=== PATIENT | male | born 1960 | race Two or more races ===

== ENCOUNTER → 2018-02-20 | Outpatient (CLI) | payer OTHER ==
[2018-02-20 17:41] LABS: ABSOLUTE EOSINOPHILS # (AUTO) 0.5 10^3/uL (0.0-0.6); ABSOLUTE LYMPHOCYTES (AUTO) 1.6 10^3/uL (0.5-4.7); ABSOLUTE MONOCYTES (AUTO) 0.5 10^3/uL (0.1-1.4); ABSOLUTE NEUT (AUTO) 4.3 10^3/uL (1.7-8.2); BASOPHILS % (AUTO) 0.4 % (0-2); EOSINOPHILS % (AUTO) 6.6 % (0-6); HEMATOCRIT 41.2 % (37.9-51.0); HEMOGLOBIN 14.2 g/dL (13.5-17.0); LYMPHOCYTES % (AUTO) 23.3 % (13-45); MEAN CORPUSCULAR HEMOGLOBIN 29.3 pg (27.0-33.4); MEAN CORPUSCULAR HGB CONC 34.5 g/dL (32.0-36.0); MEAN CORPUSCULAR VOLUME 85 fl (80-97); MONOCYTES % (AUTO) 7.4 % (3-13); PLATELET COUNT 317 10^3/uL (150-450); RED BLOOD COUNT 4.85 10^6/uL (4.35-5.55); RED CELL DISTRIBUTION WIDTH 17.8 % (11.5-14.0); SEGMENTED NEUTROPHILS % (AUTO) 62.3 % (42-78); TOTAL CELLS COUNTED % (AUTO) 100 %
[2018-02-20 17:48] LABS: INTERNATIONAL RATION (INR) 0.86; PROTHROMBIN TIME 12.2 SEC (11.4-15.4)
[2018-02-20 17:49] LABS: APPEARANCE,URINE CLEAR; BILIRUBIN,URINE NEGATIVE (NEGATIVE); COLOR,URINE YELLOW; GLUCOSE, URINE NEGATIVE (NEGATIVE); KETONES,URINE NEGATIVE (NEGATIVE); LEUKOCYTE ESTERASE,URINE NEGATIVE (NEGATIVE); NITRITE,URINE NEGATIVE (NEGATIVE); PROTEIN,URINE NEGATIVE (NEGATIVE); URINE SPECIFIC GRAVITY 1.012; UROBILINOGEN,URINE NEGATIVE mg/dL (<2.0)
== END ==
LOC: OD 16:13
PROVIDERS: ATTEND Pain Medicine Interventional Pain Medicine
DX: M96.1 Postlaminectomy syndrome, not elsewhere classified (principal); D68.9 Coagulation defect, unspecified
CPT/HCPCS: 36415; 81001; 85025; 85610; 85730

== ENCOUNTER 2018-03-11 05:56 | Day surgery (SDC) | payer OTHER ==
[2018-03-07 10:07] LABS: ANION GAP 12 (5-19); BLOOD UREA NITROGEN 11 mg/dL (7-20); CALCIUM 10.1 mg/dL (8.4-10.2); CARBON DIOXIDE 32 mmol/L (22-30); CHLORIDE 99 mmol/L (98-107); GLUCOSE 98 mg/dL (75-110); SODIUM 142.9 mmol/L (137-145)
--- NOTE | 2018-03-07 10:19 | RADIOLOGY REPORT (SQ) ---
EXAM DESCRIPTION: CHEST PA/LATERAL COMPLETED DATE/TIME: 03/07/2018 10:03 am REASON FOR STUDY: PRE-OP COMPARISON: None. EXAM PARAMETERS: NUMBER OF VIEWS: two views TECHNIQUE: Digital Frontal and Lateral radiographic views of the chest acquired. RADIATION DOSE: NA LIMITATIONS: none FINDINGS: LUNGS AND PLEURA: No opacities, masses or pneumothorax. No pleural effusion. MEDIASTINUM AND HILAR STRUCTURES: No masses or contour abnormalities. HEART AND VASCULAR STRUCTURES: Heart normal size. No evidence for failure. BONES: No acute findings. HARDWARE: None in the chest. OTHER: No other significant finding. IMPRESSION: NO SIGNIFICANT RADIOGRAPHIC FINDING IN THE CHEST. TECHNICAL DOCUMENTATION: JOB ID: [id number] [employer]- All Rights Reserved Reading location - IP/workstation name: [email or web address]
--- NOTE | 2018-03-07 10:42 | EKG REPORT ---
SEVERITY:- ABNORMAL ECG - SINUS RHYTHM FIRST DEGREE AV BLOCK BORDERLINE T ABNORMALITIES, INFERIOR LEADS : Confirmed by: Aquiles Del Valle 07-Mar-2018 10:41:01
[~2018-03-11 05:56] MED LIST: CLINDAMYCIN 600 MG/D5W RTU 600 MG/50 ML RTUPB IV ONE; CLINDAMYCIN 600 MG/D5W RTU 600 MG/50 ML RTUPB IV PRN; LACTATED RINGERS 1000 ML IV PRN; LIDOCAINE 0.5% INJ-PF (5 MG/ML) 50 ML SDV SUBCUT PRN
[2018-03-11] MEDS ORDERED: BUPIVACAINE HCL 0.25% /EPINEPHRINE INJ/PF 30 ML SDV ONE (06:33)
[2018-03-11] MEDS ORDERED: SODIUM BICARBONATE 8.4% INJ 50 MEQ/50 ML DISP.SYRIN ONE (06:33)
[2018-03-11] MEDS ORDERED: LIDOCAINE 1% INJ-PF (10 MG/ML) 30 ML SDV ONE ×2 (06:33→08:47)
[2018-03-11] MEDS ORDERED: PROPOFOL INJ 200 MG/20 ML VIAL IV ONE (07:23)
[2018-03-11] MEDS ORDERED: FENTANYL CITRATE INJ/PF 100 MCG/2 ML AMPUL ONE (07:23)
[2018-03-11] MEDS ORDERED: MIDAZOLAM 2 MG/2 ML INJ ONE (07:23)
[2018-03-11] MEDS ORDERED: ONDANSETRON HCL INJ/PF 4 MG/2 ML SDV IV PRN (08:24)
[2018-03-11] MEDS ORDERED: DIPHENHYDRAMINE HCL 50 MG/ML VIAL IV PRN (08:24)
[2018-03-11] MEDS ORDERED: FENTANYL CITRATE INJ/PF 100 MCG/2 ML AMPUL IV PRN ×3 (08:24)
[2018-03-11] MEDS ORDERED: CLINDAMYCIN PHOSPHATE INJ 300 MG/2 ML SDV ONE (09:58)
[2018-03-11] MEDS ORDERED: OXYCODONE-ACETAMINOPHEN 5-325 MG TABLET PO PRN (10:11)
--- NOTE | 2018-03-11 11:11 | OPERATIVE REPORT E ---
Operative Report NAME: EDEN EWING : 1960 AGE: 57Y DATE OF SURGERY: 03/11/2018 ROOM: PREOPERATIVE DIAGNOSIS: Lumbar radiculopathy with post laminectomy syndrome, chronic pain syndrome. OPERATION: Surgical implantation of spinal cord stimulating system including 2 16-electrode contact leads and post generator with fluoroscopy for needle placement and complex spinal cord stimulator programing. FERMENTATION ENGINEER: USHA TERRAZAS M.D. ATTENDING PHYSICIAN: Luzma Story MD ANESTHESIA: MAC TISSUE REMOVED OR ALTERED: None. PROCEDURE: After obtaining informed consent advising the patient of the risks and benefits including serious neurological injury, bleeding, pain, failure to treat pain, allergic reaction, paralysis, and he was taken to the operating room number 1 and placed comfortably in the prone position. Comfort was assessed visually. MAC anesthesia was administered. He was prepped with Chlorhexidine with the appropriate drying time until draping. After draping, fluoroscopy was utilized to evaluate the spine and suitable entrance site to the T12/L1 interspace was identified. The skin in the midline was anesthetized with 1% lidocaine and bicarb. The post generator pocket is predetermined over the left flank, it was also anesthetized with 1% lidocaine. Sharp and blunt dissection were performed in each location to create suitable working space for the pulse generator as well as a suitable working place for implantation of the electrodes. In the midline, after undermining the subcutaneous tissue above the lumbar fascia, a 22-gauge spinal needle was inserted and the paraspinal musculature was anesthetized. This was done on both sides. The [employer] needles were then inserted with loss of resistance into the epidural space on the right and the left at the T12/L1 interspaces. This space was entered without difficulty or without heme, cerebrospinal fluid, or notable paresthesias. Electrodes were placed in the right and left. Some adjustment was necessary. Eventually it advanced up to a parallel location to the mid T7 location. The patient was aroused. His anesthesia was restricted and verbal communication was established to assure proper placement of the leads and good coverage of his pain location with the existing coverage of electrodes. Once this was felt to be satisfactory, the patient was re-deepened with the MAC anesthesia. Attention was then placed towards securing lead purse strings with 0 Mersilene were placed around each of the needles followed by a distal stay suture for the anchor. Beginning on the left, the needle Stylet was removed followed by the plastic sleeve. The purse string was then secured. The anchor was placed and secured and the distal stay to the anchor was secured. Stylet was removed from the lead and the hex nut was tightened. This was repeated on the right, as described above. The leads were then tunneled to the pocket on the left flank without difficulty. They were connected with the left-sided lead to the A and B location and the right-sided lead to the C and D location. All hex nuts were secured. Impedance was tested and found to be satisfactory. Both wounds were copiously irrigated with Betadine-containing irrigation solution. The excess lead was called behind the post generator. It was placed into the pocket with the labeling facing the skin. Further irrigation was performed. The wound was then closed with inverted vertical mattress sutures using 3-0 Polysorb. Dermabond and tape was placed on top of this followed by Dermabond cement. The midline incision was closed with 2 layers of 0 Mersilene. The skin was then closed as well with saima and patient was taken back to PACU after dressings were secured. DICTATING PHYSICIAN: USHA TERRAZAS M.D. [id number] PHY#: [id number] ID: [id number] JOB#: [id number] ACCT: [id number] cc:USHA TERRAZAS M.D. > MTDD
[2018-03-11 11:48] VITALS: BP 110/60
--- NOTE | 2018-03-11 13:56 | RADIOLOGY REPORT (SQ) ---
EXAM DESCRIPTION: THORACOLUMBAR SPINE AP/LAT; NO CHG FLUORO COMPLETED DATE/TIME: 03/11/2018 1:34 pm REASON FOR STUDY: SPINAL STIMULATOR PLCMT ASST WITH FLUORO IN OR G89.4 CHRONIC PAIN SYNDROME COMPARISON: None. FLUOROSCOPY TIME: 7.2 minutes total fluoro time 30 digital images saved to PACS. TECHNIQUE: Intra-operative images acquired during surgical procedure to evaluate progress. NUMBER OF IMAGES: 30 digital radiographic images LIMITATIONS: None. FINDINGS: Intra procedural imaging and fluoro during placement of neurostimulator electrodes by Dr. Nam IMPRESSION: Intra procedural imaging and fluoro. COMMENT: Quality ID [id number]: Final reports for procedures using fluoroscopy that document radiation exp osure indices, or exposure time and number of fluorographic images (if radiation exposure indices are not available) Please consult full operative report of the attending physician for description of the procedure. TECHNICAL DOCUMENTATION: JOB ID: [id number] [employer]- All Rights Reserved Reading location - IP/workstation name: [facility]
--- NOTE | 2018-03-11 13:56 | RADIOLOGY REPORT (SQ) ---
EXAM DESCRIPTION: THORACOLUMBAR SPINE AP/LAT; NO CHG FLUORO COMPLETED DATE/TIME: 03/11/2018 1:34 pm REASON FOR STUDY: SPINAL STIMULATOR PLCMT ASST WITH FLUORO IN OR G89.4 CHRONIC PAIN SYNDROME COMPARISON: None. FLUOROSCOPY TIME: 7.2 minutes total fluoro time 30 digital images saved to PACS. TECHNIQUE: Intra-operative images acquired during surgical procedure to evaluate progress. NUMBER OF IMAGES: 30 digital radiographic images LIMITATIONS: None. FINDINGS: Intra procedural imaging and fluoro during placement of neurostimulator electrodes by Dr. Nam IMPRESSION: Intra procedural imaging and fluoro. COMMENT: Quality ID [id number]: Final reports for procedures using fluoroscopy that document radiation exp osure indices, or exposure time and number of fluorographic images (if radiation exposure indices are not available) Please consult full operative report of the attending physician for description of the procedure. TECHNICAL DOCUMENTATION: JOB ID: [id number] [employer]- All Rights Reserved Reading location - IP/workstation name: [facility]
== END 2018-03-11 11:30 | disposition home or self-care (01) ==
LOC: OROUT 05:56
PROVIDERS: ATTEND Pain Medicine Interventional Pain Medicine
DX: G89.4 Chronic pain syndrome (principal); M54.17 Radiculopathy, lumbosacral region; I10 Essential (primary) hypertension; R01.1 Cardiac murmur, unspecified; Z79.899 Other long term (current) drug therapy; Z79.891 Long term (current) use of opiate analgesic; Z79.82 Long term (current) use of aspirin; Z88.5 Allergy status to narcotic agent; Z88.0 Allergy status to penicillin; Z79.1 Long term (current) use of non-steroidal anti-inflammatories (NSAID); Z87.11 Personal history of peptic ulcer disease; Z87.442 Personal history of urinary calculi
CPT/HCPCS: 93005; 36415; 84132; 80048; 71046; 72080; 93010; 63685; 63650; C1778; C1820; J2250; J3490 ×4; J3010; J2704; 1936